=== PATIENT | male | born 1930 | race Caucasian/White ===

== ENCOUNTER 2017-10-30 15:10 | Emergency (ER) | payer SELFPAY, MEDICAID, MEDICARE | END 2017-10-30 20:03 | disposition left against medical advice (07) | LOC: E/R 15:10 | DX: Z53.21 Procedure and treatment not carried out due to patient leaving prior to being seen by health care provider (principal) ==

== ENCOUNTER 2018-01-09 12:49 | Inpatient (IN) | payer OTHER, MEDICAID ==
[2018-01-09 13:41] LABS: ADD MAN DIFF? NO
[2018-01-09] MEDS: SOD CHLORIDE 0.9% 1,000 ML IV (13:41)
[2018-01-09 13:44] LABS: WHITE BLOOD COUNT 4.3 10^3/ul (4.8-10.8)
[2018-01-09 13:44] LABS: BASOPHILS % 0.7 % (0.0-2.0); HEMATOCRIT 30.3 % (42.0-52.0); HEMOGLOBIN 10.1 g/dl (14.0-18.0); LYMPHOCYTES # 0.8 10^3/ul (0.8-2.9); LYMPHOCYTES % 19.1 % (15.0-51.0); MEAN CORPUSCULAR HEMOGLOBIN 31.8 pg (29.0-33.0); MEAN CORPUSCULAR HGB CONC 33.3 g/dl (32.0-37.0); MEAN CORPUSCULAR VOLUME 95.3 fl (82.0-101.0); MEAN PLATELET VOLUME 11.1 fl (7.4-10.4); MONOCYTE # 0.2 10^3/ul (0.3-0.9); MONOCYTES % 4.2 % (0.0-11.0); NEUTROPHIL # 3.3 10^3/ul (1.6-7.5); NEUTROPHILS % 75.5 % (39.0-77.0); PLATELET COUNT 201 10^3/UL (140-415); RED BLOOD COUNT 3.18 10^6/ul (4.70-6.10); RED CELL DISTRIBUTION WIDTH 14.5 % (11.5-14.5)
[2018-01-09 14:01] LABS: ALANINE AMINOTRANSFERASE 27 IU/L (13-69); ALBUMIN 3.9 g/dl (3.3-4.9); ALBUMIN/GLOBULIN RATIO 1.25; ALKALINE PHOSPHATASE 105 IU/L (42-121); ANION GAP 14 (8-16); ASPARTATE AMINO TRANSFERASE 32 IU/L (15-46); BILIRUBIN,INDIRECT 0.1 mg/dl (0-1.1); BILIRUBIN,TOTAL 0.1 mg/dl (0.2-1.3); BLOOD UREA NITROGEN 27 mg/dl (7-20); CALCIUM 9.7 mg/dl (8.4-10.2); CARBON DIOXIDE 32 mmol/L (21-31); CHLORIDE 99 mmol/L (97-110); CREATININE 1.07 mg/dl (0.61-1.24); GLUCOSE 105 mg/dl (70-220); LIPASE 123 U/L (23-300); POTASSIUM 3.9 mmol/L (3.5-5.1); SODIUM 141 mmol/L (135-144)
[2018-01-09 14:14] LABS: TROPONIN-I < 0.012 ng/ml (0.00-0.12)
[2018-01-09] MEDS ORDERED: ONDANSETRON 4 MG INJ IV (15:00)
[2018-01-09] MEDS ORDERED: NACL 0.9% 3 ML SYG IV (15:00)
[2018-01-09] MEDS ORDERED: DOCUSATE SODIUM 100 MG CAP PO (15:00)
[2018-01-09 15:22] LABS: ADD UMIC NO; UR ASCORBIC ACID NEGATIVE (NEGATIVE); UR BILIRUBIN (Dip) NEGATIVE (NEGATIVE); UR BLOOD (Dip) NEGATIVE (NEGATIVE); UR CLARITY CLEAR (CLEAR); UR COLOR YELLOW (YELLOW); UR GLUCOSE (Dip) NEGATIVE (NEGATIVE); UR KETONES (Dip) NEGATIVE (NEGATIVE); UR LEUKOCYTE ESTERASE (Dip) NEGATIVE Leu/ul (NEGATIVE); UR NITRITE (Dip) NEGATIVE (NEGATIVE); UR SPECIFIC GRAVITY (Dip) 1.008 (1.003-1.030); UR TOTAL PROTEIN (Dip) NEGATIVE (NEGATIVE); UR UROBILINOGEN (Dip) NEGATIVE (NEGATIVE)
[2018-01-09 15:35] LABS: HEMOGLOBIN A1C 5.8 % (0-5.9)
[2018-01-09] MEDS ORDERED: GLUCAGON 1 MG INJ IM (18:00)
[2018-01-09] MEDS ORDERED: GLUCOSE GEL 15 GRAM TUBE BUCCAL (18:00)
[2018-01-09] MEDS ORDERED: DEXTROSE 50% 50 ML SYRINGE IV (18:00)
[2018-01-09] MEDS: INSULIN ASPART [NOVOLOG] 3 ML PEN SC ×2 (18:00→20:49)
[2018-01-09] MEDS ORDERED: GLUCOSE GEL 15 GRAM TUBE PO ×2 (18:00)
[2018-01-09 18:15] LABS: IRON 84 ug/dl (35-150)
[2018-01-09 18:24] LABS: % IRON SATURATION 28 % SAT (22-52); TOTAL IRON BINDING CAPACITY 305 ug/dl (241-421)
[2018-01-09] MEDS: DEXTROSE 5%-0.45% NACL 1,000 ML IV (18:50)
[2018-01-09] MEDS: LORAZEPAM 2 MG INJ IV (18:58)
[2018-01-09] MEDS ORDERED: LORAZEPAM 2 MG INJ (18:58)
[2018-01-09] MEDS: ATORVASTATIN 40 MG TAB PO (20:26)
[2018-01-10] MEDS: LORAZEPAM 2 MG INJ IV ×2 (01:03→22:01)
[2018-01-10 05:41] LABS: ADD MAN DIFF? NO
[2018-01-10 05:43] LABS: WHITE BLOOD COUNT 2.7 10^3/ul (4.8-10.8)
[2018-01-10 05:43] LABS: BASOPHILS % 0.8 % (0.0-2.0); EOSINOPHILS % 0.4 % (0.0-7.0); HEMATOCRIT 25.6 % (42.0-52.0); HEMOGLOBIN 8.9 g/dl (14.0-18.0); LYMPHOCYTES # 0.7 10^3/ul (0.8-2.9); LYMPHOCYTES % 27.4 % (15.0-51.0); MEAN CORPUSCULAR HEMOGLOBIN 32.8 pg (29.0-33.0); MEAN CORPUSCULAR HGB CONC 34.8 g/dl (32.0-37.0); MEAN CORPUSCULAR VOLUME 94.5 fl (82.0-101.0); MEAN PLATELET VOLUME 11.8 fl (7.4-10.4); MONOCYTE # 0.2 10^3/ul (0.3-0.9); MONOCYTES % 6.4 % (0.0-11.0); NEUTROPHIL # 1.7 10^3/ul (1.6-7.5); PLATELET COUNT 185 10^3/UL (140-415); RED BLOOD COUNT 2.71 10^6/ul (4.70-6.10); RED CELL DISTRIBUTION WIDTH 14.2 % (11.5-14.5)
[2018-01-10 06:01] LABS: ALBUMIN 2.9 g/dl (3.3-4.9); ANION GAP 8 (8-16); BLOOD UREA NITROGEN 21 mg/dl (7-20); CALCIUM 8.8 mg/dl (8.4-10.2); CARBON DIOXIDE 32 mmol/L (21-31); CHLORIDE 103 mmol/L (97-110); CREATININE 0.84 mg/dl (0.61-1.24); GLUCOSE 119 mg/dl (70-220); MAGNESIUM 1.5 mg/dl (1.7-2.5); PHOSPHORUS 3.5 mg/dl (2.5-4.9); POTASSIUM 3.9 mmol/L (3.5-5.1); SODIUM 139 mmol/L (135-144)
[2018-01-10] MEDS: INSULIN ASPART [NOVOLOG] 3 ML PEN SC ×4 (08:00→21:00)
[2018-01-10] MEDS: LORATADINE 10 MG TAB PO (09:00)
[2018-01-10] MEDS: LOSARTAN 50 MG TAB PO (09:00)
[2018-01-10] MEDS: DOCUSATE SODIUM 100 MG CAP PO (09:00)
[2018-01-10] MEDS: MAGNESIUM SULFATE 4 GM/100 ML 100 ML IVPB (09:23)
[2018-01-10] MEDS: DEXTROSE 5%-0.45% NACL 1,000 ML IV (12:22)
[2018-01-10] MEDS: QUETIAPINE 25 MG TAB PO (21:00)
[2018-01-10] MEDS: ATORVASTATIN 40 MG TAB PO (21:00)
[2018-01-11] MEDS: DEXTROSE 5%-0.45% NACL 1,000 ML IV ×2 (05:58→22:05)
[2018-01-11] MEDS: LORATADINE 10 MG TAB PO (08:00)
[2018-01-11] MEDS: DOCUSATE SODIUM 100 MG CAP PO (08:00)
[2018-01-11] MEDS: INSULIN ASPART [NOVOLOG] 3 ML PEN SC ×4 (08:00→20:49)
[2018-01-11] MEDS: LOSARTAN 50 MG TAB PO (08:00)
[2018-01-11 08:44] LABS: ADD MAN DIFF? NO
[2018-01-11 08:50] LABS: WHITE BLOOD COUNT 3.4 10^3/ul (4.8-10.8)
[2018-01-11 08:50] LABS: BASOPHILS % 0.9 % (0.0-2.0); EOSINOPHILS % 0.3 % (0.0-7.0); HEMATOCRIT 30.4 % (42.0-52.0); HEMOGLOBIN 10.4 g/dl (14.0-18.0); LYMPHOCYTES # 0.8 10^3/ul (0.8-2.9); LYMPHOCYTES % 24.9 % (15.0-51.0); MEAN CORPUSCULAR HEMOGLOBIN 31.8 pg (29.0-33.0); MEAN CORPUSCULAR HGB CONC 34.2 g/dl (32.0-37.0); MONOCYTE # 0.2 10^3/ul (0.3-0.9); MONOCYTES % 6.8 % (0.0-11.0); NEUTROPHIL # 2.3 10^3/ul (1.6-7.5); NEUTROPHILS % 66.8 % (39.0-77.0); PLATELET COUNT 210 10^3/UL (140-415); RED BLOOD COUNT 3.27 10^6/ul (4.70-6.10); RED CELL DISTRIBUTION WIDTH 14.1 % (11.5-14.5)
[2018-01-11 09:27] LABS: ANION GAP 5 (8-16); BLOOD UREA NITROGEN 14 mg/dl (7-20); CALCIUM 9.1 mg/dl (8.4-10.2); CARBON DIOXIDE 37 mmol/L (21-31); CHLORIDE 106 mmol/L (97-110); CREATININE 0.77 mg/dl (0.61-1.24); GLUCOSE 74 mg/dl (70-220); MAGNESIUM 2.2 mg/dl (1.7-2.5); PHOSPHORUS 3.2 mg/dl (2.5-4.9); POTASSIUM 3.9 mmol/L (3.5-5.1); SODIUM 144 mmol/L (135-144)
[2018-01-11] MEDS: DEXTROSE 50% 50 ML SYRINGE IV (11:59)
[2018-01-11] MEDS: ATORVASTATIN 40 MG TAB PO (20:32)
[2018-01-11] MEDS: LORAZEPAM 2 MG INJ IV (22:04)
[2018-01-12 06:15] LABS: ADD MAN DIFF? NO
[2018-01-12 06:32] LABS: WHITE BLOOD COUNT 3.3 10^3/ul (4.8-10.8)
[2018-01-12 06:32] LABS: BASOPHILS % 0.6 % (0.0-2.0); EOSINOPHILS % 0.3 % (0.0-7.0); HEMATOCRIT 28.4 % (42.0-52.0); HEMOGLOBIN 9.7 g/dl (14.0-18.0); LYMPHOCYTES # 0.8 10^3/ul (0.8-2.9); LYMPHOCYTES % 23.7 % (15.0-51.0); MEAN CORPUSCULAR HEMOGLOBIN 32.1 pg (29.0-33.0); MEAN CORPUSCULAR HGB CONC 34.2 g/dl (32.0-37.0); MEAN PLATELET VOLUME 11.4 fl (7.4-10.4); MONOCYTE # 0.3 10^3/ul (0.3-0.9); MONOCYTES % 7.6 % (0.0-11.0); NEUTROPHIL # 2.2 10^3/ul (1.6-7.5); NEUTROPHILS % 67.5 % (39.0-77.0); PLATELET COUNT 191 10^3/UL (140-415); RED BLOOD COUNT 3.02 10^6/ul (4.70-6.10); RED CELL DISTRIBUTION WIDTH 14.3 % (11.5-14.5)
[2018-01-12 06:45] LABS: ALBUMIN 2.8 g/dl (3.3-4.9); ANION GAP 6 (8-16); BLOOD UREA NITROGEN 11 mg/dl (7-20); CALCIUM 8.7 mg/dl (8.4-10.2); CARBON DIOXIDE 32 mmol/L (21-31); CHLORIDE 106 mmol/L (97-110); CREATININE 0.74 mg/dl (0.61-1.24); GLUCOSE 76 mg/dl (70-220); MAGNESIUM 1.7 mg/dl (1.7-2.5); PHOSPHORUS 3.4 mg/dl (2.5-4.9); POTASSIUM 3.2 mmol/L (3.5-5.1); SODIUM 141 mmol/L (135-144)
[2018-01-12] MEDS: INSULIN ASPART [NOVOLOG] 3 ML PEN SC ×4 (08:00→21:00)
[2018-01-12] MEDS: LORATADINE 10 MG TAB PO (09:00)
[2018-01-12] MEDS: LOSARTAN 50 MG TAB PO (09:00)
[2018-01-12] MEDS: DOCUSATE SODIUM 100 MG CAP PO (09:00)
[2018-01-12] MEDS: POTASSIUM CHLORIDE 100 ML IVPB (12:35)
[2018-01-12] MEDS: DEXTROSE 5%-0.45% NACL 1,000 ML IV (16:41)
[2018-01-12] MEDS ORDERED: hydrALAzine 20 MG INJ IV (17:30)
[2018-01-12] MEDS: DEXTROSE 50% 50 ML SYRINGE IV (17:39)
[2018-01-12] MEDS: ATORVASTATIN 40 MG TAB PO (21:00)
[2018-01-12] MEDS: LORAZEPAM 2 MG INJ IV (21:23)
[2018-01-13 06:09] LABS: ADD MAN DIFF? NO
[2018-01-13 06:17] LABS: WHITE BLOOD COUNT 5.6 10^3/ul (4.8-10.8)
[2018-01-13 06:17] LABS: BASOPHILS % 0.4 % (0.0-2.0); EOSINOPHILS % 0.4 % (0.0-7.0); HEMATOCRIT 31.9 % (42.0-52.0); HEMOGLOBIN 10.7 g/dl (14.0-18.0); LYMPHOCYTES # 1.1 10^3/ul (0.8-2.9); LYMPHOCYTES % 19.9 % (15.0-51.0); MEAN CORPUSCULAR HEMOGLOBIN 31.8 pg (29.0-33.0); MEAN CORPUSCULAR HGB CONC 33.5 g/dl (32.0-37.0); MEAN CORPUSCULAR VOLUME 94.9 fl (82.0-101.0); MEAN PLATELET VOLUME 11.5 fl (7.4-10.4); MONOCYTE # 0.4 10^3/ul (0.3-0.9); MONOCYTES % 6.6 % (0.0-11.0); NEUTROPHILS % 72.3 % (39.0-77.0); PLATELET COUNT 204 10^3/UL (140-415); RED BLOOD COUNT 3.36 10^6/ul (4.70-6.10); RED CELL DISTRIBUTION WIDTH 14.6 % (11.5-14.5)
[2018-01-13 06:39] LABS: CHOL/HDL RATIO 2.2 RATIO; HDL CHOLESTEROL 92 mg/dl (31-75); LDL CHOLESTEROL,CALCULATED 99 mg/dl; TRIGLYCERIDES 80 mg/dl (0-149)
[2018-01-13 06:39] LABS: CHOLESTEROL 207 mg/dl (100-200)
[2018-01-13 06:40] LABS: MAGNESIUM 1.6 mg/dl (1.7-2.5)
[2018-01-13 06:40] LABS: PHOSPHORUS 3.4 mg/dl (2.5-4.9)
[2018-01-13 06:46] LABS: ALANINE AMINOTRANSFERASE 31 IU/L (13-69); ALBUMIN 3.1 g/dl (3.3-4.9); ALKALINE PHOSPHATASE 97 IU/L (42-121); ANION GAP 7 (8-16); ASPARTATE AMINO TRANSFERASE 39 IU/L (15-46); BILIRUBIN,INDIRECT 0.2 mg/dl (0-1.1); BILIRUBIN,TOTAL 0.2 mg/dl (0.2-1.3); BLOOD UREA NITROGEN 9 mg/dl (7-20); CALCIUM 9.2 mg/dl (8.4-10.2); CARBON DIOXIDE 35 mmol/L (21-31); CHLORIDE 106 mmol/L (97-110); CREATININE 0.78 mg/dl (0.61-1.24); GLUCOSE 93 mg/dl (70-220); POTASSIUM 4.2 mmol/L (3.5-5.1); SODIUM 144 mmol/L (135-144); TOTAL PROTEIN 5.9 g/dl (6.1-8.1)
[2018-01-13] MEDS: INSULIN ASPART [NOVOLOG] 3 ML PEN SC ×4 (08:00→21:00)
[2018-01-13] MEDS: DOCUSATE SODIUM 100 MG CAP PO (09:00)
[2018-01-13] MEDS: LOSARTAN 50 MG TAB PO (09:00)
[2018-01-13] MEDS: LORATADINE 10 MG TAB PO (09:00)
[2018-01-13] MEDS: DEXTROSE 5%-0.45% NACL 1,000 ML IV (09:27)
[2018-01-13] MEDS: MAGNESIUM SULFATE 2 GM/50 ML 50 ML IVPB (11:52)
[2018-01-13] MEDS ORDERED: FLUMAZENIL 0.5 MG INJ (12:34)
[2018-01-13] MEDS: FLUMAZENIL 0.5 MG INJ IV (12:37)
[2018-01-13 12:44] LABS: AADO2 Arterial 2.9 mmHg (7.0-24.0); Allen Test ACCEPTAB; Arterial Base Excess 3.7 mmol/L (-3.0-3); Arterial Blood Gas Oxygen Sat 98.5 mmHG (95.0-100.0); Arterial COHb 0.3 % (0.0-3.0); Arterial HCO3 28.1 mmol/L (22.0-26.0); Arterial MetHb 0.2 % (0.0-1.5); Arterial Total Hemglobin 10.9 g/dl (12.0-18.0); Arterial pCO2 41.8 mmhg (35-45); MODE NASAL CANNULA; Site Right Radial
[2018-01-13] MEDS ORDERED: VANCOMYCIN IV PER PHARMACY XX (13:00)
[2018-01-13] MEDS ORDERED: SODIUM CHLORIDE 0.9% 500 ML BAG IV* (13:00)
[2018-01-13 13:12] LABS: LACTIC ACID 0.7 mmol/L (0.5-2.0)
[2018-01-13 13:12] LABS: CREATINE KINASE 105 IU/L (23-200)
[2018-01-13 13:25] LABS: CK INDEX 4.4
[2018-01-13 13:28] LABS: CK-MB 4.59 ng/ml (0.0-2.4); TROPONIN-I < 0.012 ng/ml (0.00-0.12)
[2018-01-13 13:32] LABS: FREE T4 (FREE THYROXINE) 1.32 ng/dl (0.85-1.93)
[2018-01-13] MEDS ORDERED: MAGNESIUM SULFATE 3 GM in DEXTROSE 5% 100 ML IVPB (14:00)
[2018-01-13] MEDS: DEXTROSE 50% 50 ML SYRINGE IV ×2 (14:26→21:56)
[2018-01-13] MEDS: SOD CHLORIDE 0.9% 1,000 ML IV (14:42)
[2018-01-13] MEDS: PIPER-TAZO 3.375 GM IV (PMX) 100 ML IVPB ×2 (14:42→21:55)
[2018-01-13] MEDS: VANCOMYCIN 1.25 GM in SOD CHLORIDE 0.9% 250 ML IVPB (17:15)
[2018-01-13 19:02] LABS: LACTIC ACID 0.6 mmol/L (0.5-2.0)
[2018-01-13] MEDS: ACETAMINOPHEN 325 MG TAB PO (20:35)
[2018-01-13] MEDS ORDERED: CEFEPIME 1GM/50 ML (PMX) 50 ML IVPB (21:00)
[2018-01-13] MEDS: ATORVASTATIN 40 MG TAB PO (21:55)
[2018-01-14] MEDS: DEXTROSE 5%-0.45% NACL 1,000 ML IV ×2 (03:31→12:25)
[2018-01-14 06:28] LABS: ADD MAN DIFF? NO
[2018-01-14] MEDS: PIPER-TAZO 3.375 GM IV (PMX) 100 ML IVPB ×3 (06:31→21:26)
[2018-01-14 06:39] LABS: BASOPHILS % 0.6 % (0.0-2.0); EOSINOPHILS % 0.4 % (0.0-7.0); HEMATOCRIT 31.7 % (42.0-52.0); HEMOGLOBIN 10.8 g/dl (14.0-18.0); LYMPHOCYTES % 19.4 % (15.0-51.0); MEAN CORPUSCULAR HEMOGLOBIN 32.3 pg (29.0-33.0); MEAN CORPUSCULAR HGB CONC 34.1 g/dl (32.0-37.0); MEAN CORPUSCULAR VOLUME 94.9 fl (82.0-101.0); MEAN PLATELET VOLUME 11.9 fl (7.4-10.4); MONOCYTE # 0.3 10^3/ul (0.3-0.9); MONOCYTES % 6.5 % (0.0-11.0); NEUTROPHIL # 3.6 10^3/ul (1.6-7.5); NEUTROPHILS % 72.9 % (39.0-77.0); PLATELET COUNT 193 10^3/UL (140-415); RED BLOOD COUNT 3.34 10^6/ul (4.70-6.10); RED CELL DISTRIBUTION WIDTH 14.6 % (11.5-14.5)
[2018-01-14 07:02] LABS: LACTIC ACID 1.2 mmol/L (0.5-2.0)
[2018-01-14 07:03] LABS: PHOSPHORUS 3.6 mg/dl (2.5-4.9)
[2018-01-14] MEDS: INSULIN ASPART [NOVOLOG] 3 ML PEN SC ×4 (07:35→21:00)
[2018-01-14 07:52] LABS: ALANINE AMINOTRANSFERASE 29 IU/L (13-69); ALBUMIN/GLOBULIN RATIO 1.07; ALKALINE PHOSPHATASE 91 IU/L (42-121); ANION GAP 11 (8-16); ASPARTATE AMINO TRANSFERASE 39 IU/L (15-46); BILIRUBIN,INDIRECT 0.2 mg/dl (0-1.1); BILIRUBIN,TOTAL 0.2 mg/dl (0.2-1.3); BLOOD UREA NITROGEN 10 mg/dl (7-20); CALCIUM 8.9 mg/dl (8.4-10.2); CARBON DIOXIDE 31 mmol/L (21-31); CHLORIDE 105 mmol/L (97-110); GLUCOSE 85 mg/dl (70-220); POTASSIUM 3.6 mmol/L (3.5-5.1); SODIUM 143 mmol/L (135-144); TOTAL PROTEIN 5.8 g/dl (6.1-8.1)
[2018-01-14 09:06] LABS: INR 1.01; PROTIME 13.4 Sec (11.9-14.9)
[2018-01-14 09:07] LABS: PARTIAL THROMBOPLASTIN TIME 34.9 Sec (25.0-35.0)
[2018-01-14] MEDS: DOCUSATE SODIUM 100 MG CAP PO (09:09)
[2018-01-14] MEDS: LORATADINE 10 MG TAB PO (09:09)
[2018-01-14] MEDS: LOSARTAN 50 MG TAB PO (09:09)
[2018-01-14] MEDS ORDERED: VANCOMYCIN 1 GM 250 ML IVPB (11:00)
[2018-01-14] MEDS: POTASSIUM CHLORIDE 100 ML IVPB ×2 (12:25→16:10)
[2018-01-14] MEDS: VANCOMYCIN 1 GM 250 ML IVPB (17:18)
[2018-01-14] MEDS: ATORVASTATIN 40 MG TAB PO (21:22)
[2018-01-14 22:08] LABS: RAPID PLASMA REAGIN NONREACTIVE (NR)
[2018-01-15 01:43] LABS: ADD UMIC YES; UR ASCORBIC ACID NEGATIVE (NEGATIVE); UR BILIRUBIN (Dip) NEGATIVE (NEGATIVE); UR BLOOD (Dip) 1+ mg/dL (NEGATIVE); UR CLARITY CLEAR (CLEAR); UR COLOR COLORLESS (YELLOW); UR GLUCOSE (Dip) NEGATIVE (NEGATIVE); UR KETONES (Dip) NEGATIVE (NEGATIVE); UR LEUKOCYTE ESTERASE (Dip) NEGATIVE Leu/ul (NEGATIVE); UR NITRITE (Dip) NEGATIVE (NEGATIVE); UR RBC 2 /HPF (0-5); UR SPECIFIC GRAVITY (Dip) 1.005 (1.003-1.030); UR TOTAL PROTEIN (Dip) NEGATIVE (NEGATIVE); UR UROBILINOGEN (Dip) NEGATIVE (NEGATIVE); UR WBC 0 /HPF (0-5)
[2018-01-15] MEDS: DEXTROSE 5%-0.45% NACL 1,000 ML IV ×2 (04:10→08:10)
[2018-01-15] MEDS: QUETIAPINE 25 MG TAB PO (04:10)
[2018-01-15] MEDS: PIPER-TAZO 3.375 GM IV (PMX) 100 ML IVPB ×3 (05:59→22:29)
[2018-01-15] MEDS: INSULIN ASPART [NOVOLOG] 3 ML PEN SC ×4 (08:00→21:00)
[2018-01-15] MEDS: DOCUSATE SODIUM 100 MG CAP PO (08:50)
[2018-01-15] MEDS: LORATADINE 10 MG TAB PO (08:50)
[2018-01-15] MEDS: LOSARTAN 50 MG TAB PO (08:51)
[2018-01-15] MEDS ORDERED: DOPamine-D5W 1.6 MG/ML 250 ML IV (09:30)
[2018-01-15] MEDS: DOPamine-D5W 1.6 MG/ML 250 ML IV (10:08)
[2018-01-15] MEDS: VANCOMYCIN 1 GM 250 ML IVPB (17:28)
[2018-01-15] MEDS ORDERED: DEXTROSE 50% 50 ML SYRINGE IV (21:00)
[2018-01-15] MEDS: ATORVASTATIN 40 MG TAB PO (21:00)
[2018-01-15] MEDS ORDERED: GLUCAGON 1 MG INJ IM (21:00)
[2018-01-15] MEDS ORDERED: GLUCOSE GEL 15 GRAM TUBE BUCCAL (21:00)
[2018-01-15] MEDS ORDERED: GLUCOSE GEL 15 GRAM TUBE PO ×2 (21:00)
[2018-01-15] MEDS: DEXTROSE 50% 50 ML SYRINGE IV (21:01)
[2018-01-16] MEDS: INSULIN ASPART [NOVOLOG] 3 ML PEN SC ×4 (01:00→12:37)
[2018-01-16] MEDS: DEXTROSE 50% 50 ML SYRINGE IV (05:34)
[2018-01-16] MEDS: DEXTROSE 5%-0.45% NACL 1,000 ML IV (05:52)
[2018-01-16] MEDS: PIPER-TAZO 3.375 GM IV (PMX) 100 ML IVPB ×2 (05:57→13:35)
[2018-01-16 06:28] LABS: BLOOD UREA NITROGEN 11 mg/dl (7-20)
[2018-01-16 06:28] LABS: CREATININE 1.12 mg/dl (0.61-1.24)
[2018-01-16] MEDS: LORATADINE 10 MG TAB PO (09:21)
[2018-01-16] MEDS: LOSARTAN 50 MG TAB PO (09:22)
[2018-01-16] MEDS: DOCUSATE SODIUM 10 MG/ML (10ML CUP) PO (09:22)
[2018-01-16] MEDS: CYANOCOBALAMIN 1000 MCG INJ IM (12:37)
== END 2018-01-16 16:15 | disposition hospice, home (50) | DRG 85 ==
LOC: MS4 14:37 → ICU 01-13 16:42 → MS4 01-15 03:38 → E/R 12:49 → PP2 01-15 22:09
DX: S06.5X0A Traumatic subdural hemorrhage without loss of consciousness, initial encounter (principal); G93.49 Other encephalopathy; R00.1 Bradycardia, unspecified; D64.9 Anemia, unspecified; E11.9 Type 2 diabetes mellitus without complications; I25.10 Atherosclerotic heart disease of native coronary artery without angina pectoris; Z95.1 Presence of aortocoronary bypass graft; G30.9 Alzheimer's disease, unspecified; F02.80 Dementia in other diseases classified elsewhere, unspecified severity, without behavioral disturbance, psychotic disturbance, mood disturbance, and anxiety; W19.XXXA Unspecified fall, initial encounter; R60.9 Edema, unspecified; I10 Essential (primary) hypertension; R47.81 Slurred speech; G47.00 Insomnia, unspecified; E86.0 Dehydration; R68.0 Hypothermia, not associated with low environmental temperature; Z66 Do not resuscitate; R94.6 Abnormal results of thyroid function studies
CPT/HCPCS: 36415; 36600; 70450; 70552; 71045; 80053; 80061; 80069; 81001; 81003; 82550; 82553; 82565; 82607; 82803; 82962; 83036; 83540; 83605; 83690; 83735; 84100; 84439; 84443; 84484; 84520; 85025; 85610; 85730; 86592; 87040; 87081; 87086; 92526; 92610; 93005; 93306; 96365; 96366; 96375; 96376; 97167; 99285-25